=== PATIENT | male | born 1960 | race Caucasian/White ===

== ENCOUNTER 2023-06-03 15:19 | Emergency (ER) | payer OTHER, SELFPAY ==
--- NOTE | 2023-06-03 15:49 | ED.GENMED ---
History of Present Illness
General
Chief Complaint: Musculo-Skeletal Complaint
Time Seen by Provider: 06/03/23 15:28
Travel History
Have you had any contact with someone who has COVID-19?: No
Do you have any symptoms of coronavirus? Fever > 100 degrees, chills, cough, shortness of breath, sore throat, loss of taste or smell, muscle aches, or headache?: No
History of Present Illness
History of Present Illness:
62-year-old male presents to the emergency department for evaluation of swelling to the left lower extremity after an injury to the left olmos. He struck the left lower extremity on a trailer hitch 1 week ago, the hematoma to that area has improved.
He noticed increased bruising to the ankle and the toes prompting her to come in today. No pain with ambulation. No numbness
Review of Systems
Review of Systems
Allergies reviewed?: Yes
All Other Systems: ROS reviewed and negative except as documented in HPI and ROS
Phy Exam
Physical Exam
Physical Exam:
GEN: Well appearing, NAD, WDWN
HEENT: Oral mucosa moist, no scleral icterus
Cardiac: Regular rate
Lung: No respiratory distress, no tachypnea
MSK: Diffuse edema with variable ecchymosis to the left lower extremity extending to the toes. Strong pedal pulse, calf compartments are soft x 4
Skin: Good color, no pallor or jaundice, no rashes
Neuro: AO x3, moves all extremities freely
Psych: Calm, cooperative
Course
Vital Signs
Initial and Last Documented VS:
Initial Vital Signs
Temp Pulse Resp BP Pulse Ox
98.0 F 85 16 169/102 98
06/03/23 15:21 06/03/23 15:21 06/03/23 15:21 06/03/23 15:21 06/03/23 15:21
Last Documented Vital Signs
Temp Pulse Resp BP Pulse Ox
98.0 F 85 16 169/102 98
06/03/23 15:21 06/03/23 15:21 06/03/23 15:21 06/03/23 15:21 06/03/23 15:21
MDM/Problems Addressed
MDM/Problems Addressed:
No evidence of compartment syndrome. Has strong pedal pulse. Likely dependent edema in the setting of superficial vascular injury from the hematoma. No indication for imaging, supportive care discussed with elevation, compression, and ice
*Critical Care Note
Total Time (30-74mins, 75-104mins- exclusive of procedures): Not Applicable
ED Attending Note
-
Portions of this chart may have been created with voice recognition software.� Occasional wrong word or��sound alike� substitutions may have occurred due to the inherent limitations of voice recognition software.
Discharge Plan
Departure
Patient Disposition: Home (Routine Discharge)
Date of Disposition: 06/03/23
Time of Disposition: 15:49
Patient with high blood pressure during this ER visit?: No
Discharge Problem:
Hematoma of left lower leg, Leg edema, left
Instructions: Hematoma
Interventions
Interventions:
*Risk Screen - Suicide Last Done: 06/03/23 16:31
*General Assessment Last Done: 06/03/23 15:21
*Neglect/Abuse Screening Last Done: 06/03/23 16:31
*ED COVID-19 Vaccine History Last Done: 06/03/23 15:21
*Nursing Disposition Last Done: 06/03/23 16:31
Discharge Date and Time
Discharge Date/Time: 06/03/23 16:31
Print Language: MALAWIAN
== END 2023-06-03 16:31 | disposition home or self-care (01) ==
LOC: EMR 15:19
PROVIDERS: EMERGENCY PHYSICIAN Emergency Medicine; FAMILY PHYSICIAN Nurse Practitioner Adult Health
DX: S80.12XA Contusion of left lower leg, initial encounter (principal); W21.9XXA Striking against or struck by unspecified sports equipment, initial encounter; R60.0 Localized edema
CPT/HCPCS: 99282

== ENCOUNTER 2023-07-02 19:13 | Emergency (ER) | payer OTHER, SELFPAY ==
[2023-07-02 19:27] VITALS: BP 160/100
[2023-07-02 23:35] VITALS: BP 159/95
[2023-07-02 23:50] LABS: % Basophils 0.7 % (0-2); % Eosinophils 1.8 % (0-6); % Lymphocytes 36.2 % (20.5-51.1); % Monocytes 3.7 % (1.7-9.3); % Neutrophils 57.6 % (42.2-75.2); Absolute Eosinophils 0.1 10^3/uL (0-0.7); Absolute Monocytes 0.1 10^3/uL (0.1-0.6); Absolute Neutrophils 1.6 10^3/uL (1.4-6.5); Mean Corp Hgb Conc. 35.9 g/dL (33.0-37.0); Mean Corpuscular Hgb 29.7 pg (27.0-31.0); Mean Corpuscular Volume 82.8 fL (80.0-94.0); Nucleated Red Blood Cells % 0 % (-); Platelet Count 93 10^3/uL (130-400); Red Blood Cell Count 4.71 10^6/uL (4.70-6.10); Red Cell Dist. Width 13.6 % (11.5-14.5); White Blood Cell Count 2.7 10^3/uL (4.8-10.8)
[2023-07-03] VITALS: BP 145/86
[2023-07-03 00:27] LABS: ALT (SGPT) 30 U/L (0-50); AST (SGOT) 30 U/L (17-59); Albumin 4.8 g/dl (3.5-5.0); Alkaline Phosphatase 53 U/L (38-126); Blood Urea Nitrogen 19 mg/dl (9-20); Calcium 9.5 mg/dl (8.4-10.2); Carbon Dioxide 22 mmol/L (22-30); Chloride 105 mmol/L (98-107); Glucose 94 mg/dl (70-99); Potassium 4.1 mmol/L (3.5-5.1); Sodium 134 mmol/L (135-145); Total Bilirubin 0.9 mg/dl (0.2-1.3); Total Protein 7.4 g/dl (6.3-8.2); eGFR > 60.00
--- NOTE | 2023-07-03 00:58 | ED.GENMED ---
History of Present Illness
General
Chief Complaint: Abdominal Pain
Source: patient
Exam Limitations: none
Time Seen by Provider: 07/02/23 23:37
Nursing documentation reviewed up to this point in time: agreed with
Travel History
Have you had any contact with someone who has COVID-19?: No
Do you have any symptoms of coronavirus? Fever > 100 degrees, chills, cough, shortness of breath, sore throat, loss of taste or smell, muscle aches, or headache?: No
History of Present Illness
History of Present Illness:
62y/o M with no sig pmh
here with left sided umbilical abd pain today while lifting heavy furniture
pain is worse with movement
none at rest
no fever, chills, nausea, diarrhea, constipation
no urinarysypmtoms
no known hernia
was here 1 mo ago for pain and swelling to leg after hitting his olmos on a trailor hitch
he had pain and swelling and a hematoma
he says he has continued to have the area of swelling anterior olmos but then some swellin gin the calf
no pain, numbness/tingling/weakness.
Past History
Past History
ED Past Medical History: None
ED Past Surgical History: Appendectomy
Social History
Tobacco: Non-smoker
Alcohol: None
Drug: None
Personal: Single
Review of Systems
Review of Systems
Allergies reviewed?: Yes
All Other Systems: Not applicable
Phy Exam
Physical Exam
Physical Exam:
GENERAL: Alert , in no apparent distress
EYE: pupils equal and reactive
NECK: Supple
ENT: o/p clr, mmm.
CARDIAC: Regular rate and rhythm .
LUNGS: Clear breath sounds bilaterally, no acute respiratory distress, no wheezes/rales/rhonchi
ABDOMEN: Soft, nondistended, umbilical hernia defect palpated, easily reducible, tracks slightly to the left of midline, I do not appreciate any inguinal hernias., no r/g, no cvat, normal bowel sounds
NEUROLOGICAL: Alert and oriented, no focal neuro deficits
SKIN: Warm and dry, skin intact.
Patient has a hematoma measuring approximately 5 cm round in diameter which is nontender, slightly soft and spongy to the anterior lower leg, there is slight surrounding edema in the leg but no significant erythema. The fluctuant hematoma
isnontender and nonerythematous
MUSCULOSKELETAL: No edema, well perfused.
PSYCH: Normal and appropriate interaction.
Course
Orders/Labs/Results
Orders:
Orders
07/02/23 23:40
CMP [Comprehensive Metabolic Panel] Urgent
Complete Blood Count/With Diff Urgent
07/03/23 00:15
CT Abd/pelvis W Iv Cont Urgent
Reason For Exam: LEFT LOWER ABDOMINAL PAIN
Abnormal Lab Results
07/02/23
23:40
WBC 2.7 L 10^3/uL
(4.8-10.8)
Plt Count 93 L 10^3/uL
(130-400)
Absolute Lymphs (auto) 1.0 L 10^3/uL
(1.2-3.4)
Sodium 134 L mmol/L
(135-145)
07/02/23 23:40
07/02/23 23:40
Vital Signs
Initial and Last Documented VS:
Initial Vital Signs
Temp Pulse Resp BP Pulse Ox
98.4 F 62 24 160/100 100
07/02/23 19:27 07/02/23 19:27 07/02/23 19:27 07/02/23 19:27 07/02/23 19:27
Last Documented Vital Signs
Temp Pulse Resp BP Pulse Ox
97.9 F 62 24 145/86 99
07/02/23 23:49 07/02/23 19:27 07/02/23 19:27 07/03/23 00:00 07/03/23 01:00
MDM/Problems Addressed
Differential Diagnosis Includes:
hernia, obstruction
MDM/Problems Addressed:
62-year-old male was lifting furniture today and felt some pain to the left of his abdomen. He feels better now. The pain was worse with movement and lifting. He has not had any vomiting or diarrhea, nausea, constipation, fevers or chills. He
has no noted abdominal hernia
No urinary symptoms. On exam the patient had an umbilical hernia which was easily reducible, the hernia tracks light to the left of his umbilicus. He had no obstructive signs. Incidentally he has an hematoma on his left anterior lower extremity
that is slightly fluctuant with some mild edema in his lower extremity. He says it has been improving since he had a hematoma after striking a trailer hitch a few weeks ago. He does not believe it is getting worse. It is not painful. He has no
proximal leg pain.
Patient is in the process of moving and does need to get home. CT of his abdomen pelvis shows a fat containing left periumbilical hernia as well as a fat-containing left inguinal hernia. There is no obvious palpable inguinal hernia.Patient will be
told to use an abdominal binder and avoid heavy lifting. He will need to see his family doctor regarding the hematoma if it is getting worse
he says this is much better over the past 2 weeks
*Critical Care Note
Total Time (30-74mins, 75-104mins- exclusive of procedures): Not Applicable
ED Attending Note
-
Portions of this chart may have been created with voice recognition software.� Occasional wrong word or��sound alike� substitutions may have occurred due to the inherent limitations of voice recognition software.
Discharge Plan
Departure
Patient Disposition: Home (Routine Discharge)
Date of Disposition: 07/03/23
Time of Disposition: 02:39
Patient with high blood pressure during this ER visit?: Yes
Condition: Fair
Covid-19: Not Applicable
Discharge Problem:
Hernia, umbilical, Inguinal hernia
Instructions: Groin Hernia (DC), Abdominal wall hernias
Referrals:
Iman Marin CRNP [Family Provider] -
Armando Wilson MD [Active] - Follow up in 5-7 days (surgery)
Activity Restrictions/Additional Instructions:
you have 2 abdominal hernias
one in your belly button and one in your left groin
neither of them contain bowel
you should avoid heavy lifting
you should see a surgeon as an outpatient to get a consulation for repair
return for: swelling, redness, skin change, fever, chills, vomiting, not passing gas, severe constipation or any concerns.
For the hematoma on your leg you really ought to get this checked by your family doctor in the next couple of days and make sure it is not getting infected. You can try warm compresses on it. Watch the skin and make sure it is not getting
worsening redness. You may need antibiotics if this gets infected
Interventions
Interventions:
*Risk Screen - Suicide Last Done: 07/02/23 19:27
*Neglect/Abuse Screening Last Done: 07/02/23 19:27
ED- Fall Risk Assessment Last Done: 07/02/23 23:20
ZA-[id number]-[id number] Assessment Last Done: 07/02/23 23:20
Discharge Date and Time
Print Language: MONGOLIAN
[2023-07-03 02:47] VITALS: BP 155/100
== END 2023-07-03 02:50 | disposition home or self-care (01) ==
LOC: EMR 19:13
PROVIDERS: EMERGENCY PHYSICIAN Emergency Medicine; FAMILY PHYSICIAN Nurse Practitioner Adult Health
DX: K40.90 Unilateral inguinal hernia, without obstruction or gangrene, not specified as recurrent (principal); K42.9 Umbilical hernia without obstruction or gangrene; R03.0 Elevated blood-pressure reading, without diagnosis of hypertension
CPT/HCPCS: 99285; 74177; 80053; 85025; Q9967

== ENCOUNTER 2023-08-08 06:26 | Day surgery (SDC) | payer OTHER, SELFPAY ==
[2023-07-25 08:50] LABS: Hematocrit 43.9 % (39.0-52.0); Hemoglobin 15.6 g/dL (13.0-18.0); Mean Corp Hgb Conc. 35.5 g/dL (33.0-37.0); Mean Corpuscular Hgb 29.7 pg (27.0-31.0); Mean Corpuscular Volume 83.5 fL (80.0-94.0); Mean Platelet Volume 9.6 fL (7.4-10.4); Platelet Count 107 10^3/uL (130-400); Red Blood Cell Count 5.26 10^6/uL (4.70-6.10); Red Cell Dist. Width 13.3 % (11.5-14.5); White Blood Cell Count 2.6 10^3/uL (4.8-10.8)
[2023-07-25 11:24] LABS: Blood Urea Nitrogen 25 mg/dl (9-20); Calcium 9.4 mg/dl (8.4-10.2); Carbon Dioxide 26 mmol/L (22-30); Chloride 105 mmol/L (98-107); Estimated Creatinine Clearance 78 ml/min; Glucose 98 mg/dl (70-99); Potassium 4.7 mmol/L (3.5-5.1); Sodium 139 mmol/L (135-145); eGFR > 60.00
--- NOTE | 2023-07-26 13:17 | PTCARENOTE ---
Patients 07/24 EKG abnormal- reviewed by Dr. Parks- no additional interventions indicated.
[2023-08-08] VITALS (7 sets, daily range): BP systolic 134–163; BP diastolic 85–97
[2023-08-08] MEDS: TYLENOL 1000 MG PO (10:50)
[2023-08-08] MEDS: NORMOSOL-R 1000 IV (11:03)
== END 2023-08-08 15:23 | disposition home or self-care (01) ==
LOC: SDS 06:26
PROVIDERS: ATTENDING PHYSICIAN Surgery; FAMILY PHYSICIAN Nurse Practitioner Adult Health
DX: K40.90 Unilateral inguinal hernia, without obstruction or gangrene, not specified as recurrent (principal); K42.9 Umbilical hernia without obstruction or gangrene
CPT/HCPCS: 49650; 49593; 36415; 80048; 85027; 93005; C1781